=== PATIENT | female | born 1950 | race Caucasian/White ===

== ENCOUNTER 2016-11-26 08:05 | Emergency (ER) | payer BC ==
[2016-11-26] MEDS ORDERED: FENTANYL 100 MCG/2 ML VIAL ONE (08:24)
[2016-11-26] MEDS ORDERED: ONDANSETRON ODT 4 MG TAB.RAPDIS ONE (08:25)
--- NOTE | 2016-11-26 08:42 | RADIOLOGY REPORT ---
Four views of the left wrist demonstrates a transverse fracture of the distal radial metaphysis. There appears to be intraarticular extension at the medial aspect of the joint surface. There is approximately 5 mm of dorsal displacement and mild dorsal impaction resulting in loss of the normal volar tilt. The ulna and carpus appear intact. IMPRESSION: Impacted intraarticular left Colles fracture as described. MTDD
[2016-11-26] MEDS ORDERED: LIDOCAINE HCL 1% 20 ML VIAL ONE (11:01)
--- NOTE | 2016-11-26 11:55 | HISTORY AND PHYSICAL ---
PROVIDER: Date of Admission: 11/26/16 Admitting Provider: Nahun Attending Provider: Dr. Skyler Vital Primary Care Provider: CHIEF COMPLAINT: Broken left wrist HISTORY OF PRESENT ILLNESS: The patient is a 66-year-old female who is visiting from out of town. She was in the shower this morning when she stumbled backwards, landing on her left dominant outstretched hand. She had immediate pain and felt a crack in her wrist as she landed. She also had very rapid onset swelling. She was later brought to the emergency department where she was noted to have a fracture of the left distal radius. She denies other injuries associated with her fall. 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 SOCIAL HISTORY: As noted above, the patient is visiting from out of town. She is a nonsmoker. FAMILY HISTORY: Family history is noncontributory. MEDICATIONS: metoprolol, hydrochlorothiazide, and 2 different antibiotics although she does not know their names. ALLERGIES: Neosporin REVIEW OF SYSTEMS: GENERAL: negative SKIN:negative HEENT:negative NECK:negative RESPIRATORY:negative CARDIOVASCULAR:negative GASTROINTESTINAL:negative GENITOURINARY:negative MUSCULOSKELETAL:broken left wrist as noted NEUROLOGICAL:negative PSYCHIATRIC:negative ENDOCRINE:negative HEMATOLOGY:negative PHYSICAL EXAMINATION: GENERAL:well-appearing female in no apparent distress, alert and oriented 3. MUSCULOSKELETAL: physical examination the left upper extremity reveals obvious deformity of the left wrist and distal forearm. She is exquisitely tender to palpation in the region of the distal radius. This pain. Her sensation is intact throughout to light touch, with brisk capillary refill distally. IMAGING: Injury radiographs of the left wrist reveal a fracture through the metaphysis, with about 15 of apex volar angulation, and about 30% dorsal displacement. There is no evidence of intra-articular extension. Post reduction radiographs reveal only very slight displacement of the volar cortex. There is still some comminution of the dorsal cortex, and also the comminution extends to more than 50% of the width of the radius on the lateral view. Assessment and Plan - Date of Encounter Date of Encounter: 11/26/16 (1) Closed fracture of left distal radius Status: Acute Qualifiers: Encounter type: initial encounter Assessment and plan: Assessment: Fracture of the left distal radius as noted above. Given her degree of dorsal comminution, this appears to be an unstable fracture pattern. Plan: We discussed treatment, and I recommended an initial closed reduction. The patient agreed to that, so after obtaining informant consent we performed a hematoma block under sterile prep. That provided adequate anesthesia in order to perform a closed reduction. The closed reduction was performed by suspending the fingers in finger traps, applying 12 pounds of counterweight to the upper arm, and then performing a gentle reduction maneuver. C-arm fluoroscopy was used to verify proper alignment of the fracture. We then placed her into a well-padded sugar tong splint with a 3 point mold. Given her degree of dorsal comminution, I would recommend pursuing open reduction and internal fixation. She has a choice as to whether or not she would like to have that done here or return home. she is considering having her surgery here, so we will look at the operating room schedule to see when we would be able to accommodate that. Current Visit: Yes
--- NOTE | 2016-11-26 11:57 | RADIOLOGY REPORT ---
Additional views of the left wrist at 1110 hours are compared with films earlier on the same date. There has been interval reduction of the distal radius fracture application of casting material. No other change is identified. IMPRESSION: Interval reduction and casting of left distal radius fracture. [facility]
[2016-11-26 12:27] LABS: BASOPHILS 0.4 % (0.0-2.0); EOSINOPHILS 7.4 % (0.0-6.0); EOSINOPHILS# 0.5 X 10^3uL (0.0-0.4); HEMATOCRIT 39.5 % (36.0-48.0); HEMOGLOBIN 13.1 g/dL (12.0-16.0); LYMPHOCYTES 17.1 % (20.0-40.0); LYMPHOCYTES# 1.1 X 10^3uL (0.8-3.8); MEAN CELL VOLUME 86.2 fL (80.0-100.0); MEAN CORPUS. HGB CONCENTRATION 33.2 g/dL (32.0-36.0); MEAN CORPUSCULAR HEMOGLOBIN 28.6 pg (29.0-35.0); MEAN PLATELET VOLUME 9.6 fL (7.4-10.4); MONOCYTES 8.2 % (2.0-10.0); MONOCYTES# 0.5 X 10^3uL (0.2-1.0); NEUTROPHILS 66.9 % (54.0-75.0); NEUTROPHILS# 4.5 X 10^3uL (2.6-6.7); PLATELET COUNT 238 X 10^3uL (130-440); RED BLOOD COUNT 4.59 X 10^6uL (4.20-6.10); RED CELL DISTRIBUTION WIDTH 13.8 % (11.5-14.5); WHITE BLOOD COUNT 6.6 X 10^3uL (3.9-10.7)
[2016-11-26 12:29] LABS: BLOOD UREA NITROGEN 13 mg/dL (7-17); CALCIUM 9.9 mg/dL (8.4-10.2); CHLORIDE 102 mmol/L (98-107); EST GLOMERULAR FILTRATION RATE > 60 mL/min; GLUCOSE 115 mg/dL (70-100); POTASSIUM 3.9 mmol/L (3.5-5.1); SODIUM 139 mmol/L (137-145)
--- NOTE | 2016-11-26 12:48 | ER PHYSICIAN DOCUMENTATION ---
Physician Documentation [facility], [place] Name:Sylvia Baker Age:66 yrs Sex:Female :1950 Arrival Date:11/26/2016 Time:08:05 Bed6 Private MD: Preston Gonzalez Disposition: 11/27 05:25 Chart complete. tl1 Disposition: 11/26/16 11:44 Discharged to Home/Self Care. Impression: Distal Radius Fracture. - Condition is Good. - Discharge Instructions: FRACTURE Distal Radius Reduction Required - COLLES FRACTURE, Reduction Required. - Prescriptions for [place] 5- 325 mg Oral - take 1 tablet by ORAL route every 6 hours As needed; 10 tablet. Zofran 4 mg Oral Tablet - take 1-2 tablet by ORAL route every 4-6 hours As needed; 10 tablet. - Medical Reconciliation form form. - Follow up: Private Physician; When: 4- 6 days; Reason: Recheck today's complaints, Continuance of care. - Problem is new. - Symptoms have improved. HPI: 11/26 08:10 This 66 yrs old Female presents to ER with complaints of Wrist Injury - LEFT. tl1 08:18 Context: The problem was sustained at home, resulted from a fall, in the shower. Onset: tl1 The symptom(s)/episode began/occurred suddenly, just prior to arrival. Modifying factors: The symptoms are alleviated by remaining still, the symptoms are aggravated by movement. Associated signs and symptoms: The patient has no apparent associated signs or symptoms. Severity of symptoms: At their worst the symptoms were moderate, in the emergency department the symptoms are unchanged. The patient has not experienced similar symptoms in the past. She fell with her hand extended, striking the heel of her hand on the shower floor. She heard a "snap" and noted immediate pain and deformity. She denies any other injury.. Historical: - Allergies: No known drug Allergies; - Home Meds: 1. Metoprolol Tartrate Oral 2. dieretic 3. two abx - PMHx: Hypertension; exterminator helper infection; - PSHx: thumb; - Tetanus: < 10 years. - Immunization history: Pneumococcal vaccine status is unknown. - Ebola Screening: : Patient denies exposure to infectious person. Patient denies travel to an Ebola-affected area in the 21 days before illness onset. . - Social history: Smoking status: Patient states was never smoker of tobacco. Patient uses alcohol but reports only rare drinking. Patient/guardian denies using marijuana. ROS: 08:20 MS/extremity: Positive for injury or acute deformity, pain, tenderness. tl1 Exam: 08:20 Constitutional: The patient appears alert, awake, well developed, well hydrated, well tl1 groomed, well nourished, in obvious distress, moderately distressed. 08:20 Head/face: Exam is negative for acute changes. 08:20 Cardiovascular: Rate: normal, Rhythm: regular. 08:20 Respiratory: Respirations: normal. 08:20 Musculoskeletal/extremity: Extremities: grossly normal except: noted in the left wrist: Joints: All joints are normal except the left wrist displays deformity, limited range of motion, pain at rest, painful range of motion, swelling, tenderness. Vital Signs: 08:20 BP 178 / 87; Pulse 73; Resp 16; Temp 98.1; Pulse Ox 93% ; Pain 10/10; st 09:34 BP 127 / 63 (auto/); lpr 09:35 Pain 3/10; lpr 09:39 Pulse Ox 92% ; lpr 10:00 BP 134 / 63 (auto/); lpr 10:04 Pulse Ox 97% ; lpr 10:30 BP 139 / 64 (auto/); st 10:34 Pulse Ox 96% ; st 10:59 Pulse Ox 95% ; st 11:01 BP 123 / 58 (auto/); st 11:30 BP 148 / 57 (auto/); st 12:00 BP 159 / 89 (auto/); st MDM: 08:14 Patient medically screened. tl1 09:00 Data reviewed: vital signs, nurses notes, and as a result, I will discharge patient. tl1 Physician consultation: Luis Fernando Garnica MD was called at 08:30, was contacted at 08:30, regarding patient's condition, need to come to ED to see patient, and will see patient in ED, shortly. ED course: She was seen in consult by Dr Garnica who reduced thee fracture and splinted her.. 11/26 12:30 Order name: BASIC METABOLIC PANEL; Complete Time: 05:15 EDMS 11/27 05:13 Interpretation: Normal. tl1 11/26 12:34 Order name: CBC AUTO DIF, MDIF/RMOR IF IND; Complete Time: 05:15 EDMS 11/27 05:13 Interpretation: WHITE BLOOD COUNT 6.6; HEMOGLOBIN 13.1; HEMATOCRIT 39.5; PLATELET COUNT tl1 238. 11/26 08:25 Order name: WRIST; [place] [id number]; Complete Time: 05:15 EDMS 11/27 05:14 Interpretation: distal radius fracture. see radiologist report. tl1 11/26 12:41 Order name: FLUOROSCOPY, UP TO 1 [id number]; Complete Time: 05:15 EDMS 11/26 12:18 Order name: EKG - 12 Lead; Complete Time: 12:44 st Dispensed Medications: 08:19 Drug: fentaNYL [place] 100 mcg; Route: Intranasal; Site: both nares; st 08:23 Follow up: Response: Pain is decreased st 08:19 Drug: Zofran 4 mg; Route: PO; st 08:23 Follow up: Response: Nausea is decreased st 09:35 Drug: Dilaudid 0.5 mg; Route: IVP; Site: right forearm; lpr 09:35 Follow up: Response: Pain is decreased lpr Signatures: Magali Luke RN RN st Roberts, Leslie, RN RN lpr Leigh, Tom, MD MD tl1
--- NOTE | 2016-11-26 12:48 | ER NURSING DOCUMENTATION ---
Nurse's Notes [facility] Name:Sylvia Baker Age:66 yrs Sex:Female :1950 Arrival Date:11/26/2016 Time:08:05 Bed6 Private MD: Diagnosis:Distal Radius Fracture Presentation: 11/26 08:15 Presenting complaint: Patient states: pt fell in the shower and landed on her left st outstretched hand. pt now has left wrist pain and swelling. Transition of care: Home. 08:15 Acuity: GLO 2 st 08:15 Method Of Arrival: Private Vehicle st Triage Assessment: 08:19 General: Appears uncomfortable, Behavior is cooperative. General: pt states she felt st bones breack.. Pain: Complains of pain in dorsal aspect of left wrist Pain currently is 10 out of 10 on a pain scale. Cardiovascular: No deficits noted. Respiratory: No deficits noted. GI: No deficits noted. Musculoskeletal: Circulation, motion, and sensation intact other pt holding wrist at a funny angle. Swelling present in dorsal aspect of left wrist. Historical: - Allergies: No known drug Allergies; - Home Meds: 1. Metoprolol Tartrate Oral 2. dieretic 3. two abx - PMHx: Hypertension; long term care pharmacist infection; - PSHx: thumb; - Tetanus: < 10 years. - Immunization history: Pneumococcal vaccine status is unknown. - Ebola Screening: : Patient denies exposure to infectious person. Patient denies travel to an Ebola-affected area in the 21 days before illness onset. . - Social history: Smoking status: Patient states was never smoker of tobacco. Patient uses alcohol but reports only rare drinking. Patient/guardian denies using marijuana. Screenin:21 Infectious Disease Risk None. Abuse screen: Denies threats or abuse. Denies injuries st from another. pt feels safe at home. Nutritional screening: No deficits noted. Assessment: 08:23 General: pt states pain is starting to feel a little better.. st 10:33 General: Dr. Garnica at bedside to do a closed reduction. . lpr Vital Signs: 08:20 BP 178 / 87; Pulse 73; Resp 16; Temp 98.1; Pulse Ox 93% ; Pain 10/10; st 09:34 BP 127 / 63 (auto/); lpr 09:35 Pain 3/10; lpr 09:39 Pulse Ox 92% ; lpr 10:00 BP 134 / 63 (auto/); lpr 10:04 Pulse Ox 97% ; lpr 10:30 BP 139 / 64 (auto/); st 10:34 Pulse Ox 96% ; st 10:59 Pulse Ox 95% ; st 11:01 BP 123 / 58 (auto/); st 11:30 BP 148 / 57 (auto/); st 12:00 BP 159 / 89 (auto/); st ED Course: 08:07 Patient arrived in ED. ama 08:14 Preston Vital MD is Attending Physician. tl1 08:15 Magali Luke RN is Primary Nurse. st 08:[address] 08:21 Valuables Remains with patient Patient has correct armband on for positive st identification. Bed in low position. Pulse Ox - RN Monitoring Only. 08:25 WRIST; [place] [id number] In Process Unspecified. EDMS 09:31 Missed attempts: 20 gauge X 2 in right forearm, in right antecubital area. lpr 09:34 Inserted peripheral IV: 20 gauge in right forearm and blood collected. Oxygen Oxygen lpr administration via nasal cannula @ 2L/min. 12:20 EKG done per protocol. st Administered Medications: 08:19 Drug: fentaNYL [place] 100 mcg; Route: Intranasal; Site: both nares; st 08:23 Follow up: Response: Pain is decreased st 08:19 Drug: Zofran 4 mg; Route: PO; st 08:23 Follow up: Response: Nausea is decreased st 09:35 Drug: Dilaudid 0.5 mg; Route: IVP; Site: right forearm; lpr 09:35 Follow up: Response: Pain is decreased lpr Outcome: 11:44 Discharge ordered by . tl1 12:44 Discharged to home ambulatory. st 12:44 Condition: improved 12:44 Discharge instructions given to patient, Instructed on discharge instructions, follow up and referral plans. medication usage, Prescriptions given X 2. 12:47 Patient [address] the ED. st 11/27 13:34 Discharge F/U Call: Unable to reach: no answer st Signatures: Dispatcher [employer] EDMS Magali Luke RN RN st Roberts, Leslie, RN RN lpr Parviz Kemp, Reg Reg Preston Clarke MD MD tl1
== END 2016-11-26 12:48 | disposition home or self-care (01) ==
LOC: ER 08:05
DX: S52.532A Colles' fracture of left radius, initial encounter for closed fracture (principal); W18.2XXA Fall in (into) shower or empty bathtub, initial encounter; Y92.002 Bathroom of unspecified non-institutional (private) residence as the place of occurrence of the external cause; Y93.E1 Activity, personal bathing and showering; I10 Essential (primary) hypertension; Z79.2 Long term (current) use of antibiotics
CPT/HCPCS: 76000; 80048; 85025; 96374; 99284; J1170; J3010

== ENCOUNTER 2016-11-27 10:37 | Day surgery (SDC) | payer BC ==
[2016-11-27] MEDS ORDERED: ceFAZolin 1 GM in NORMAL SALINE MINI-BAG+ 100 ML IV PRN (11:26)
[2016-11-27] MEDS ORDERED: ceFAZolin 1 GM/10 ML VIAL ONE (12:13)
[2016-11-27] MEDS ORDERED: FAMOTIDINE IN SALINE, ISO-OSM 20 MG/50 ML PIGGYBACK IV ONE (12:13)
[2016-11-27] MEDS ORDERED: METOCLOPRAMIDE HCL 10 MG/2 ML VIAL ONE (12:14)
[2016-11-27] MEDS ORDERED: LIDOCAINE HCL 1% 20 ML VIAL SUBCUT PRN (12:16)
[2016-11-27] MEDS ORDERED: METOCLOPRAMIDE HCL 10 MG/2 ML VIAL IV PRN (12:16)
[2016-11-27] MEDS ORDERED: NORFLURANE/HFC 245FA 1 APPLIC CAN TOPICAL ONE (12:18)
[2016-11-27] MEDS ORDERED: FAMOTIDINE IN SALINE, ISO-OSM 20 MG/50 ML PIGGYBACK IV SCH (12:30)
[2016-11-27] MEDS ORDERED: BUPIVACAINE HCL/PF 0.25% 10 ML VIAL INJ ONE (12:32)
[2016-11-27] MEDS ORDERED: DEXAMETHASONE 4 MG/ML VIAL ONE (12:38)
[2016-11-27] MEDS ORDERED: ONDANSETRON HCL 4 MG/2 ML VIAL ONE (12:38)
[2016-11-27] MEDS ORDERED: KETOROLAC TROMETHAMINE 30 MG/ML VIAL ONE (12:38)
[2016-11-27] MEDS ORDERED: ACETAMINOPHEN 1,000 MG/100 ML VIAL IV ONE (12:42)
[2016-11-27] MEDS ORDERED: LACTATED RINGERS 1,000 ML IV SCH (13:00)
[2016-11-27] MEDS ORDERED: LABETALOL HCL 100 MG/20 ML VIAL IV ONE (13:42)
[2016-11-27] MEDS: FENTANYL 100 MCG/2 ML VIAL IV PRN ×3 (14:48→15:20)
[2016-11-27 15:46] VITALS: RESP 13; TEMP 98.4
[2016-11-27 15:56] VITALS: BP 126/75; PULSE 78; O2SAT 90
--- NOTE | 2016-11-27 18:43 | OPERATIVE NOTE: Orthopedic ---
DATE OF SURGERY: 11/27/16 SURGEON: Nahun ANESTHESIA: General PREOPERATIVE DIAGNOSIS: Unstable fracture of the left distal radius. POSTOPERATIVE DIAGNOSIS: Same PROCEDURE PERFORMED: ORIF IMPLANTS: Acumed Accu lock I volar distal radius locking plate INDICATION FOR PROCEDURE: The patient is a 66-year-old female who slipped in the shower, landing on her left dominant outstretched hand sustaining a fracture of the left distal radius. Post reduction radiographs revealed that she had dorsal comminution extending more than 50% of the width of the radius on the lateral view, rendering the fracture pattern unstable. She was therefore taken to the operating room for open reduction and internal fixation. SUMMARY: After informed consent was obtained, the patient was taken to the operative note where she was placed in the supine position under general anesthesia. After adequate anesthesia was achieved the left hand and upper extremity were prepped and draped in the usual sterile fashion, and the limb was elevated but not exsanguinated, after which a tourniquet was inflated about the proximal arm to 250 mmHg. A longitudinal incision was performed in line with the flexor carpi radialis tendon, and the underlying soft tissue was gently but sharply dissected to reveal the tendon. The tendon was retracted, and then the deep forearm fascia was incised, after which blunt dissection was carried out down to the distal radius and pronator quadratus. The pronator quadratus was released from its radial attachment, and the retracted ulnarly. Subperiosteal dissection was carried out to expose the distal radius fracture. The fracture was gently debrided, and then irrigated copiously with sterile saline. The reduction was then performed, and the distal radius plate was positioned. C- arm fluoroscopy was used to confirm proper alignment of the fracture, and once proper position of the plate was obtained, it was provisionally held in place using K wires. It was then secured proximally using a single 3.5 mm cortical screw. The plate was then secured distally initially using a nonlocking screw in order to draw the metaphysis closer to the plate. The remainder of the distal metaphysis was then secured to the plate using the 2.2 mm locking screws. The initial screw proved to be a little bit too long, so it was removed and placed with a shorter locking screw. C-arm fluoroscopy was used throughout this portion of the case to verify proper alignment of the fracture as well as position of the plate and length of the screws. Once the metaphysis was completely secured, the proximal portion of the plate was secured to the diaphysis using 2 additional 3.5 mm screws. C-arm fluoroscopy was used one last time to verify proper positioning of the implants as well as alignment of the fracture. The wound was then irrigated with copious sterile saline, and the pronator quadratus was reapproximated and repaired using 3-0 Vicryl. The subcutaneous tissues closed using 2-0 Vicryl, and the skin was closed using 4-0 nylon in a running fashion. A sterile gauze dressing was applied and the patient was placed into a well-padded volar splint. She tolerated the procedure well and was taken to the recovery room in stable condition. ESTIMATED BLOOD LOSS: Minimal FLUIDS: 1100 mL TOURNIQUET TIME: 87 minutes
--- NOTE | 2016-12-02 19:07 | RADIOLOGY REPORT ---
Two limited views of the left wrist from the C-Arm in the operating room are compared with films dated 11/26/2016. There has been interval open reduction and internal fixation of the distal radius fracture, which is secured with plates and multiple screws. No other change is identified. IMPRESSION: Interval open reduction and internal fixation of the left distal radius fracture. [facility]
== END 2016-11-27 16:09 | disposition home or self-care (01) ==
LOC: SDS 10:37
PROVIDERS: ATTEND Orthopaedic Surgery
DX: S52.502A Unspecified fracture of the lower end of left radius, initial encounter for closed fracture (principal); W01.0XXA Fall on same level from slipping, tripping and stumbling without subsequent striking against object, initial encounter
CPT/HCPCS: 76000; C1713; J0690; J1170; J1885; J2405; J2765; J3010